=== PATIENT | male | born 1985 | race African-American/Black ===

== ENCOUNTER 2023-07-13 16:01 | Emergency (ER) | payer OTHER, SELFPAY ==
[2023-07-13 16:16] VITALS: BP 155/109; PULSE 71; RESP 16; TEMP 37.1; O2SAT 100
--- NOTE | 2023-07-13 17:40 | ED.GENADULT ---
HPI - General Adult General Chief complaint: Skin/Abscess/Foreign Body Stated complaint: Rash Source: patient Mode of arrival: ambulatory Limitations: no limitations History of Present Illness HPI narrative: Patient presents for evaluation of a skin lesion the right lateral chest beneath the axilla. Symptom onset a few days ago. He initially felt itching in the area. He then visualized some blisters. Some of the blisters have erupted and he now has a few scabbed lesions. He has mild pain in the area. No new lotions, soaps, detergents, topical products. No one in the home has similar symptoms. He did have chickenpox in the past. Related Data Allergies Allergy/AdvReac Type Severity Reaction Status Date / Time No Known Allergies Allergy Verified 07/13/23 16:30 Review of Systems Review of Systems: CONSTITUTIONAL: Denies fever, chills, or sweats. EYES: Denies visual changes, redness, or discharge. ENT: Denies rhinorrhea, congestion, sore throat, or otalgia. CARDIOVASCULAR: Denies chest pain, palpitations, or edema. RESPIRATORY: Denies cough or dyspnea. GASTROINTESTINAL: Denies abdominal pain, nausea, vomiting, or diarrhea. GENITOURINARY: Denies dysuria or hematuria. SKIN: Reports skin lesion to right lateral chest wall. MUSCULOSKELETAL: Denies back pain, joint pain, or myalgia. NEUROLOGIC: Denies headache, numbness, dizziness, or weakness. PSYCHIATRIC: Denies anxiety or depression. [facility] Past Medical History Medical History No pertinent past medical history Surgical History Surgical History No pertinent past surgical history Family History Family History Mother Family history non-contributory Social History Social History Smoking packs per day: 0.5 Smoking cigarettes per day: 10.0 Smoking status: Current every day smoker Alcohol intake: current Alcohol use details: social Substance use: current Substance use type: marijuana Living arrangements: with family Gender identity (if verbalized by the patient): Male Spiritual care concerns: No Exam Narrative: GENERAL: Well-appearing, well-nourished, and in no acute distress. HEAD: Normocephalic, atraumatic. EYES: PERRLA and EOMI. ENT: Nares clear, no rhinorrhea or epistaxis. Mucous membranes moist. Oropharynx without tonsillar hypertrophy exudate or other lesions. Bilateral TMs pearly mayo nonbulging NECK: Supple. No adenopathy or masses. No carotid bruits or JVD CHEST: Clear to auscultation. No respiratory distress. No wheezes rales or rhonchi HEART: Regular rate and rhythm. No murmur heard. Normal peripheral pulses. ABDOMEN: Soft, nontender, nondistended, normal active bowel sounds. EXTREMITIES: Normal range of motion. No edema. SKIN: there are several pinpoint scabbed lesions to the right lateral chest wall beneath the axilla that are erythematous and an annular pattern NEURO: No focal deficits. Alert and oriented x3. PSYCH: Normal mood and affect. Course Course Emergency Course: This is a 37-year-old male who presented for evaluation of skin concerns. This is a classic presentation of herpes zoster. Will treat with Valtrex. Follow-up with primary provider. Go to the ER for worsening symptoms. Patient in agreement with plan of care. Level of Care: Express Care Visit Vital Signs Vital signs: Vital Signs Temperature 37.1 C 07/13/23 16:16 Pulse Rate 71 07/13/23 16:16 Respiratory Rate 16 07/13/23 16:16 Blood Pressure 155/109 H 07/13/23 16:16 Pulse Oximetry 100 07/13/23 16:16 Oxygen Delivery Room Air 07/13/23 16:16 Temperature 37.1 C 07/13/23 16:16 Pulse Rate 71 07/13/23 16:16 Respiratory Rate 16 07/13/23 16:16 Blood Pressure 155/109 H
== END 2023-07-13 17:47 | disposition home or self-care (01) ==
PROVIDERS: Emergency Provider Nurse Practitioner
DX: B02.9 Zoster without complications (principal); F17.210 Nicotine dependence, cigarettes, uncomplicated
CPT/HCPCS: 99203; G0463